=== PATIENT | female | born 2000 | race Two or more races ===

== ENCOUNTER 2022-09-24 21:27 | Emergency (ER) | payer OTHER ==
[~2022-09-24] VITALS: Ht 154.9 cm; Wt 54.4 kg
[2022-09-24 22:39] VITALS: BP 110/71
[2022-09-24] MEDS ORDERED: ACETAMINOPHEN 325 MG TAB PO ONE (23:15)
[2022-09-24] MEDS ORDERED: ACET500T58 PO (23:31)
[2022-09-24] MEDS ORDERED: CEPH500C PO (23:31)
[2022-09-25] MEDS ORDERED: cefTRIAXone SOD 1,000 MG VL IM ONE (01:30)
[2022-09-25] MEDS ORDERED: CLIN300C70 PO (01:33)
== END 2022-09-25 01:53 | disposition home or self-care (01) ==
LOC: EDBD 21:27 → ER 21:31
DX: S02.5XXA Fracture of tooth (traumatic), initial encounter for closed fracture (principal); S01.01XA Laceration without foreign body of scalp, initial encounter; S16.1XXA Strain of muscle, fascia and tendon at neck level, initial encounter; S80.02XA Contusion of left knee, initial encounter; F41.9 Anxiety disorder, unspecified; F84.0 Autistic disorder; Z88.8 Allergy status to other drugs, medicaments and biological substances; Z91.041 Radiographic dye allergy status; V43.52XA Car driver injured in collision with other type car in traffic accident, initial encounter; Y93.I9 Activity, other involving external motion; Y92.89 Other specified places as the place of occurrence of the external cause; Y99.8 Other external cause status
CPT/HCPCS: 12002; 70450; 72125; 73562; 96372; 99285; J0696